=== PATIENT | female | born 1955 | race Caucasian/White ===

== ENCOUNTER 2019-07-20 13:51 | Inpatient (IN) ==
[2019-07-20] MEDS ORDERED: IPRATROPIUM/ALBUTEROL 3 ML AMPUL.NEB NEB PRN (16:50)
[2019-07-20] MEDS ORDERED: POTASSIUM CHLORIDE 20 MEQ TABLET PO PRN ×2 (16:50)
[2019-07-20] MEDS ORDERED: DEXTROSE 50% 50 ML VIAL IV PRN (16:50)
[2019-07-20] MEDS ORDERED: POTASSIUM CHLORIDE 40 MEQ in DEXTROSE 5% IN WATER 500 ML IV PRN (16:50)
[2019-07-20] MEDS ORDERED: SENNOSIDES 1 TABLET PO PRN (16:50)
[2019-07-20] MEDS ORDERED: MAGNESIUM SULFATE 2 GM/50 ML BAG IV PRN (16:50)
[2019-07-20] MEDS ORDERED: LACTULOSE 20 GM/30 ML ORAL.SOL PO PRN (16:50)
[2019-07-20] MEDS ORDERED: DEXTROSE 31 GM ORAL.SUSP PO PRN (16:50)
[2019-07-20] MEDS ORDERED: ACETAMINOPHEN 325 MG TABLET PO PRN (16:50)
[2019-07-20] MEDS ORDERED: ONDANSETRON 4 MG/2 ML VIAL IV PRN (16:50)
[2019-07-20] MEDS ORDERED: POLYETHYLENE GLYCOL 3350 17 GM PACKET PO PRN (16:50)
[2019-07-20] MEDS ORDERED: MIDODRINE 5 MG TABLET PO PRN (16:53)
--- NOTE | 2019-07-20 16:59 | Internal Med History&Physical ---
Medical - H&P: [facility] Patient information: Note initiated : 07/20/19 at 4:56 pm Service Date, if different from initiated Date: [] Patient: Perez Sandy 63 y/o F admitted on 07/20/19 for Fluid Overload . Chief Complaint: [] History of present illness: Ms. Sandy is a 63 year old F Patient presents the ED with shortness of breath. Patient states she developing shortness of breath last night. She has a chronic cough but the cough is worse. And productive of white clear sputum. Does have chronic shortness of breath but feels it is worse as well. She has headaches. In ED she received breathing treatments she said helped. She typically only wears oxygen at night 2 L however will wear oxygen during the day sometimes and averages a couple days per week. Denies fever and chills. She was hypoxic at 86% initially. She is dialysis patient as well. Review of Systems: Pertinent positives as above. Denies /fever/chills/nausea/vomiting/chest or abdominal pain/diarrhea. Otherwise see above. Medical - H&P: [facility] Medical history: Medical History (Last Updated 06/16/19 @ 12:44 by Conrado Keiht DO) Diabetes mellitus, type 2 (Chronic) Chronic renal failure, stage 5 (Chronic) COPD (chronic obstructive pulmonary disease) with emphysema (Chronic) Morbid obesity (Chronic) Cellulitis (Acute) Acute exacerbation of chronic obstructive airways disease (Resolved) COPD exacerbation (Resolved) Surgical history: Rotator cuff repair x2 Family: Mother lung cancer Father heart disease Social History Patient quit smoking 10 years ago Has 1 glass of alcohol a month Ambulates with a walker Lives with family Medical - H&P: Meds Home Medications Medication Instructions Recorded Confirmed Type Albuterol Sulfate 2.5 mg IH Q4HP PRN 06/08/19 06/16/19 History Albuterol Sulfate [Proair 90 mcg IH Q4HP PRN 06/08/19 07/20/19 History Digihaler] Aspirin [Adult Aspirin Regimen] 81 mg PO DAILY 06/08/19 06/16/19 History Beclomethasone Dipropionate [Qvar 2 puff INH BID 06/08/19 06/16/19 History 40] Calcium Acetate [Phoslo] 2 cap PO ONCE 06/08/19 06/16/19 History Calcium Acetate [Phoslo] 667 mg PO ONCE 06/08/19 06/16/19 History Calcium Carbonate [Tums] 500 mg CHEWED TID 06/08/19 06/16/19 History Cyanocobalamin (Vitamin B-12) 1,000 mcg PO DAILY 06/08/19 06/16/19 History [Vitamin B-12] Diltiazem HCl [Cartia Xt] 240 mg PO DAILY 06/08/19 07/20/19 History Fluticasone Furoate [Arnuity 1 puff IH DAILY 06/08/19 06/16/19 History Ellipta] Folic Acid/Vit B Complex and C 0.8 mg PO DAILY 06/08/19 06/16/19 History [Dialyvite 800 Tablet] Gabapentin [Neurontin] 150 mg PO HSP PRN 06/08/19 06/16/19 History Insulin Glargine, Human [Lantus] 30 unit SQ BID 06/08/19 06/16/19 History Levalbuterol Tartrate [Xopenex Hfa] 1 puff IH Q4HP PRN 06/08/19 07/20/19 History Midodrine [Midodrine HCl] 5 mg PO Q4HP PRN 06/08/19 07/20/19 History Mometasone/Formoterol [Dulera 200 2 puff IH BID 06/08/19 06/16/19 History Mcg/5 Mcg Inhaler] Naproxen Sodium [All Day Pain 220 mg PO PRN PRN 06/08/19 06/16/19 History Relief] Pravastatin [Pravachol] 80 mg PO HS 06/08/19 06/16/19 History Sulfamethoxazole/Trimethoprim 1 tab PO BID #14 tab 06/08/19 06/16/19 Rx [Bactrim Ds] Tiotropium Saunemin [Spiriva] 2 puff INH BID 06/08/19 07/20/19 History glipiZIDE [Glipizide ER] 10 mg PO DAILY 06/08/19 06/16/19 History predniSONE [Prednisone] 20 mg PO DAILY #23 tab 06/08/19 06/16/19 Rx traZODone HCL [Trazodone HCl] 50 mg PO HS 06/08/19 07/20/19 History Levofloxacin [Levaquin] 250 mg PO DAILY #7 tab 06/16/19 Rx predniSONE [Prednisone] 20 mg PO DAILY #20 tab 06/16/19 Rx Cephalexin [Keflex] 500 mg PO QID #30 cap 07/02/19 Rx Sulfamethoxazole/Trimethoprim 1 tab PO BID #14 tab 07/02/19 Rx [Bactrim Ds] Cephalexin [Keflex] 500 mg PO QID 07/20/19 07/20/19 History Fluticasone/Salmeterol [Advair Hfa 2 puff INH BID 07/20/19 07/20/19 History 115-21 Mcg Inhaler] Allergies Allergy/AdvReac Type Severity Reaction Status Date / Time Penicillins Allergy Intermediate Rash Verified 07/20/19 15:14 adhesive tape AdvReac Mild Rash Verified 07/20/19 15:14 Surgical metals AdvReac Severe Other Uncoded 07/20/19 15:14 manzanares butter AdvReac Intermediate Rash Uncoded 07/20/19 15:14 Medical - H&P: Exam - Constitutional Vitals: Temp Pulse Resp BP Pulse Ox 98.9 F 102 H 18 167/99 94 07/20/19 16:11 07/20/19 15:01 07/20/19 16:11 07/20/19 16:11 07/20/19 16:11 Exam: General: Alert, Awake, No acute Distress, obese Eyes/N/T: EOMI, PERRL, Head/Neck: neck supple, normocephalic atraumatic CV: RRR, No murmurs, normal s1/s2 Pulm: b/l exp wheezing, diminished at bases Abd: soft, nontender, +BS x4 Ext: no clubbing/cyanosis, chronic b/l LE edema mild Neuro: Alert, no focal deficits, moves all extremities, CN 2-12 grossly intact, symmetrical strength b/l upper/lower, sensations intact b/l upper/lower Skin: warm/dry Medical - H&P: A/P - Narrative A/P Narrative: A: *Acute hypoxic respiratory failure: 2/2 AECOPD and likely volume overload *AECOPD (2L@night at home and sometimes during day): *Volume overload: *ESRD: Follows with Dr. Molina *Leukocytosis: ?PNA vs reactive *Hyperkalemia/hyponatremia: *DM with neuropathy:: *Anemia, chronic *Obese: * P: -O2 supp -steroids (wean), nebs/RT -IS/acapella -Levaquin, pending SC, check PCT -Check ABG -NEphro for HD -Electrolyte per nephrology -Home basal insulin and SSI - -PT/OT -ppx: Heparin full code Medical - H&P: Qual - VTE Deep Vein Thrombosis/Pulmonary Embolism Present on Admission: No
[2019-07-20] MEDS ORDERED: LEVOFLOXACIN 500 MG/100 ML BAG IV SCH (17:00)
[2019-07-20] MEDS ORDERED: LEVOFLOXACIN 750 MG/150 ML BAG IV ONE (17:15)
[2019-07-20] MEDS: methylPREDNISolone SOD SUCC 40 MG/ML VIAL IV SCH (17:57)
[2019-07-20] MEDS: INSULIN LISPRO 1 UNIT/0.01 ML UNIT SQ SCH ×2 (17:57→22:12)
[2019-07-20] MEDS: IPRATROPIUM/ALBUTEROL 3 ML AMPUL.NEB NEB SCH (20:15)
[2019-07-20] MEDS ORDERED: traZODone HCL 50 MG TABLET PO SCH (21:00)
[2019-07-20] MEDS: HEPARIN 5,000 UNIT/ML VIAL SQ SCH (22:12)
[2019-07-20] MEDS: 0.9 % SODIUM CHLORIDE 10 ML SYRINGE IV SCH (22:13)
[2019-07-21] MEDS: DOCUSATE SODIUM 100 MG CAPSULE PO SCH ×3 (02:36→21:40)
[2019-07-21] MEDS: IPRATROPIUM/ALBUTEROL 3 ML AMPUL.NEB NEB SCH ×4 (02:36→22:22)
[2019-07-21] MEDS: methylPREDNISolone SOD SUCC 40 MG/ML VIAL IV SCH ×2 (02:53→06:40)
[2019-07-21] MEDS: 0.9 % SODIUM CHLORIDE 10 ML SYRINGE IV SCH ×3 (04:38→21:40)
[2019-07-21] MEDS ORDERED: GABAPENTIN 100 MG CAPSULE PO PRN (07:22)
--- NOTE | 2019-07-21 07:28 | Internal Med Progress Note ---
Medical - PN: Subj Patient information: Note initiated : 07/21/19 at 7:24 am Service Date, if different from initiated Date: [] Patient: Perez Sandy 63 y/o F admitted on 07/20/19 for Fluid Overload . Chief Complaint: [] Interval history: Ms. Sandy is a 63 year old F Patient presents the ED with shortness of breath. Patient states she developing shortness of breath last night. She has a chronic cough but the cough is worse. And productive of white clear sputum. Does have chronic shortness of breath but feels it is worse as well. She has headaches. In ED she received breathing treatments she said helped. She typically only wears oxygen at night 2 L however will wear oxygen during the day sometimes and averages a couple days per week. Denies fever and chills. She was hypoxic at 86% initially. She is dialysis patient as well. 3/3 Better today. Able to cough out some sputum today clear yellow. Shortness of breath is still mildly present but much better. 5 L removed from the night hemodialysis last night. Getting dialysis today. Does not feel wheezy like she did yesterday. Review of Systems: denies headache/fever/chills/nausea/vomiting/chest or abdominal pain/diarrhea. Otherwise see above. - Constitutional Vitals: Vital Signs Temp Pulse Resp BP Pulse Ox 97.9 F 99 H 18 155/78 93 07/21/19 04:00 07/21/19 07:17 07/21/19 07:17 07/21/19 04:00 07/21/19 07:09 Period Temp Pulse Resp BP Sys/Joyce Pulse Ox Last 24 Hr 97.4 F-98.9 F 88-108 18-24 121-170/68-138 84-99 Intake and Output 07/20/19 07/21/19 07/21/19 21:59 05:59 13:59 Intake Total 100 Output Total 5002 Balance -4902 Weight 108.862 kg Intake & Output: Intake & Output 07/20/19 07/21/19 07/21/19 21:59 05:59 13:59 Intake Total 100 Output Total 5002 Balance -4902 Weight 108.862 kg Intake: IV 100 Output: # of times incontinent of urine 2 Hemodialysis UF 5000 Other: Meal Jello Percent of Meal Consumed 100% Exam: General: Alert, Awake, No acute Distress, obese Eyes/N/T: EOMI, , Head/Neck: neck supple, CV: RRR, No murmurs, Pulm: no wheezing today, diminished at bases Abd: soft, nontender, +BS x4 Ext: no clubbing/cyanosis, chronic b/l LE edema mild Neuro: Alert, no focal deficits, moves all extremities, Skin: warm/dry Medical - PN: Obj Da - Labs CBC & Chem 7: 07/21/19 06:55 07/21/19 06:55 Meds: Medications Acetaminophen (Tylenol) 650 mg PO Q6HP PRN PRN Reason: PAIN/FEVER > 101 Albuterol/Ipratropium (Duoneb) 3 ml NEB Q6HRT [facility] Last Admin: 07/21/19 07:08 Dose: 3 ml Documented by: Albuterol/Ipratropium (Duoneb) 3 ml NEB Q4HP PRN PRN Reason: Shortness Of Breath Dextrose (Dextrose 50%) 0 ml IV UD PRN PRN Reason: Hypoglycemia Diagnostic Test (Pha) (Accu-Chek) 1 each [facility] Last Admin: 07/21/19 06:40 Dose: 1 each Documented by: Diltiazem HCl (Cardizem Cd) 240 mg PO DAILY [facility] Docusate Sodium (Colace) 100 mg PO BID [facility] Last Admin: 07/21/19 02:36 Dose: Not Given Documented by: Glucose (Insta-Glucose) 15 gm PO PRN PRN PRN Reason: Hypoglycemia Heparin Sodium (Porcine) (Heparin) 5,000 unit SQ Q12 [facility] Last Admin: 07/20/19 22:12 Dose: 5,000 unit Documented by: Potassium Chloride 40 meq/ (Dextrose) 520 mls @ 130 mls/hr IV UD PRN PRN Reason: Potassium < 3 Magnesium Sulfate (Magnesium Sulfate) 2 gm in 50 mls @ 50 mls/hr IV UD PRN PRN Reason: Magnesium </= 1.6 Levofloxacin (Levaquin) 500 mg in 100 mls @ 100 mls/hr IV Q48H [facility] Insulin Human Lispro (Humalog) 0 unit SQ [facility]; Protocol Last Admin: 07/20/19 22:12 Dose: 8 units Documented by: Lactulose (Cephulac) 20 gm PO DAILYP PRN PRN Reason: Constipation Methylprednisolone Sodium Succinate (Solu-Medrol) 40 mg IV Q8 [facility] Last Admin: 07/21/19 06:40 Dose: 40 mg Documented by: Midodrine (Midodrine Hcl) 5 mg PO Q4HP PRN PRN Reason: Blood Pressure Ondansetron HCl (Zofran) 4 mg IV Q4HP PRN PRN Reason: Nausea And Vomiting Polyethylene Glycol (Miralax) 17 gm PO DAILYP PRN PRN Reason: Constipation Potassium Chloride (Kdur) 40 meq PO UD PRN PRN Reason: Potssium is 3-3.5 Potassium Chloride (Kdur) 40 meq PO UD PRN PRN Reason: Potassium < 3 Senna (Senokot) 2 tab PO DAILYP PRN PRN Reason: Constipation Sodium Chloride (Saline Flush) 10 ml IV Q8 [facility] Last Admin: 07/21/19 04:38 Dose: 10 ml Documented by: Trazodone HCl (Desyrel) 50 mg PO HS [facility] Last Admin: 07/21/19 02:37 Dose: Not Given Documented by: Medical - PN: A/P - Time Spent With Patient Total time spent is greater than 50% in coordination of care (as documented) at patient's floor/unit and/or counseling patient: - Narrative A/P Narrative: A: *Acute hypoxic respiratory failure: 2/2 AECOPD and volume overload -from 2L initially to 0.5L today *suspect underlying PNA with leukocytosis/PCT elevation on admit: -leukocytosis improving *AECOPD (2L@night at home and sometimes during day): *Volume overload: *ESRD: Follows with Dr. Molina *Hyperkalemia/hyponatremia: *DM with neuropathy:: *Anemia, chronic *Obese: * P: -O2 supp -steroids (wean), nebs/RT -IS/acapella -Levaquin, pending SC, -NEphro for HD -Electrolyte per nephrology -Home basal insulin and SSI -PT/OT -ppx: Heparin Medical - PN: Qual - VTE Deep Vein Thrombosis/Pulmonary Embolism Present on Admission: No
[2019-07-21] MEDS ORDERED: glipiZIDE 5 MG TAB.XL.24H PO SCH (07:30)
[2019-07-21 07:46] LABS: Basophils # (Auto) 0.06 K/mcL (0.00-0.30); Basophils % (Auto) 0.5 % (0.0-2.0); Eosinophils # (Auto) 0 K/mcL (0.00-0.70); Eosinophils % (Auto) 0 % (0.0-7.0); Granulocytes % (Auto) 86.7 % (38.0-78.0); Hematocrit 30.5 % (34.1-44.9); Hemoglobin 9.6 g/dL (11.2-15.7); Lymphocytes # (Auto) 1.19 K/mcL (1.50-4.80); Lymphocytes % (Auto) 10.6 % (15.5-49.0); Mean Cell Volume 88.4 fL (80.0-100.0); Mean Corpuscular HGB Conc 31.5 g/dL (31.0-36.0); Mean Platelet Volume 10.4 fL (7.4-10.4); Monocytes # (Auto) 0.25 K/mcL (0.10-0.90); Monocytes % (Auto) 2.2 % (1.0-12.0); Platelet Count 261 K/mcL (140-440); RBC 3.45 M/mcL (3.59-5.38); Red Cell Distribution Width 16.1 % (11.5-14.5); WBC 11.2 K/mcL (4.50-11.00)
[2019-07-21 07:57] LABS: ALT/SGPT 20 U/l (0-40); AST/SGOT 18 U/l (0-37); Albumin 3.5 gm/dL (3.2-5.2); Albumin/Globulin Ratio 1.1 (1.0-2.3); Alkaline Phosphatase 156 U/L (39-117); Bilirubin,Direct < 0.2 mg/dL (0.0-0.3); Bilirubin,Total 0.3 mg/dL (0.0-1.0); Calcium 8.3 mg/dl (8.6-10.4); Carbon Dioxide 25 mmol/L (22-30); Globulin 3.2 gm/dL (2.2-3.7); Glucose 239 mg/dL (70-105); Lactate Dehydrogenase 293 U/L (94-250); Phosphorous 4.8 mg/dL (2.7-4.5); Triglycerides 91 mg/dl (<150); Uric Acid 3.4 mg/dL (2.5-8.0)
--- NOTE | 2019-07-21 08:04 | XRay Report ---
HISTORY: Fluid overload, pneumonia versus pulmonary edema FINDINGS: There is a mild generalized haziness in the lung parenchyma bilaterally, most apparent around the lilian. The heart is mildly enlarged but magnified by portable technique. No pleural effusion is present. Discoid atelectasis is present adjacent to the cardiac apex. Comparison with the prior exam from 06/16/19 shows the alveolar opacities are new and the heart has increased in size. The discoid atelectasis is also new. IMPRESSION: Congestive heart failure with mild pulmonary edema Interpreted and Authenticated by: Steven Dey 07/21/19
[2019-07-21 08:06] LABS: Blood Urea Nitrogen 22 mg/dl (8-23); Chloride 91 mmol/L (96-108); Glomerular Filtration Rate 12
[2019-07-21] MEDS: INSULIN LISPRO 1 UNIT/0.01 ML UNIT SQ SCH ×4 (08:14→21:38)
[2019-07-21] MEDS: HEPARIN 5,000 UNIT/ML VIAL SQ SCH ×2 (08:14→21:37)
[2019-07-21] MEDS ORDERED: SALMETEROL INH SCH (09:00)
[2019-07-21] MEDS ORDERED: ASPIRIN 81 MG TAB.CHEW PO SCH (09:00)
[2019-07-21] MEDS ORDERED: FLUTICASONE INH SCH (09:00)
[2019-07-21] MEDS ORDERED: DILTIAZEM 240 MG CAP.XL.24H PO SCH (09:00)
[2019-07-21] MEDS ORDERED: INSULIN GLARGINE, HUMAN 1 UNIT/0.01 ML SQ SCH (09:00)
--- NOTE | 2019-07-21 09:39 | Nephrology Progress Note ---
Subjective Patient information: Note initiated : 07/21/19 at 9:36 am Service Date, if different from initiated Date: [] Patient: Perez Sandy 63 y/o F admitted on 07/20/19 for Fluid Overload . Chief Complaint: [] She feels better. The swelling in her legs are better. Breathing is better as well. Objective - Vital Signs Vital signs: Vital Signs Temp Pulse Resp BP Pulse Ox 07/21/19 08:19 105 H 93 07/21/19 08:00 97.5 F 22 151/87 93 07/21/19 07:17 99 H 18 07/21/19 07:09 93 07/21/19 07:00 150/78 07/21/19 06:01 102 H 151/75 98 07/21/19 05:00 159/84 07/21/19 04:00 97.9 F 20 155/78 92 07/21/19 03:00 146/72 07/21/19 02:45 135/72 07/21/19 02:30 97.4 F 96 H 140/76 96 07/21/19 02:16 93 H 123/76 99 07/21/19 02:15 91 H 123/76 07/21/19 02:01 94 H 133/74 96 07/21/19 02:00 91 H 133/74 07/21/19 01:45 96 H 145/71 95 07/21/19 01:31 94 H 134/72 96 07/21/19 01:30 89 134/72 07/21/19 01:18 96 H 143/75 96 07/21/19 01:16 96 H 170/138 98 07/21/19 01:15 96 H 143/75 07/21/19 01:01 91 H 128/73 97 07/21/19 01:00 91 H 128/73 07/21/19 00:46 93 H 143/70 98 07/21/19 00:45 91 H 143/70 07/21/19 00:30 95 H 162/83 95 07/21/19 00:15 94 H 150/79 96 07/21/19 00:01 94 H 158/81 97 07/21/19 00:00 103 H 158/81 07/20/19 23:46 96 H 166/78 97 07/20/19 23:45 100 H 166/78 07/20/19 23:32 97 H 160/82 97 07/20/19 23:31 97 H 162/80 96 07/20/19 23:30 102 H 160/82 07/20/19 23:16 97 H 169/89 96 07/20/19 23:15 101 H 169/89 07/20/19 23:01 97 H 152/77 97 07/20/19 23:00 97 H 152/77 07/20/19 22:46 102 H 157/79 96 07/20/19 22:45 97.9 F 93 H 157/79 07/20/19 22:30 102 H 143/85 89 L 07/20/19 22:26 98 H 152/84 94 07/20/19 22:01 100 H 121/97 94 07/20/19 21:01 102 H 169/99 84 L 07/20/19 20:07 98.3 F 108 H 24 H 164/86 93 07/20/19 16:11 98.9 F 18 167/99 94 07/20/19 15:01 102 H 157/77 95 07/20/19 14:51 102 H 141/68 95 07/20/19 14:29 22 97 Intake and Output 07/20/19 07/21/19 07/21/19 21:59 05:59 13:59 Intake Total 100 Output Total 5002 Balance -4902 Intake: IV 100 Output: # of times incontinent of urine 2 Hemodialysis UF 5000 Other: Meal Jello Percent of Meal Consumed 100% Weight 240 lb Intake & Output: Intake & Output 07/20/19 07/21/19 07/21/19 21:59 05:59 13:59 Intake Total 100 Output Total 5002 Balance -4902 Weight 240 lb Intake: IV 100 Output: # of times incontinent of urine 2 Hemodialysis UF 5000 Other: Meal Jello Percent of Meal Consumed 100% - General Appearance General appearance: well-developed, well-nourished EENT: ATNC Neck: JVD Respiratory: wheezing, rales Cardiology: no murmurs Gastrointestinal: normoactive bowel sounds Integumentary: no rash Neurologic: no focal deficit Musculoskeletal: no deformities - Lab 07/21/19 06:55 07/21/19 06:55 Most recent lab results Calcium 8.3 mg/dl (8.6-10.4) L 07/21/19 06:55 Phosphorus 4.8 mg/dL (2.7-4.5) H 07/21/19 06:55 Magnesium 2.0 mg/dL (1.6-2.5) 07/21/19 06:55 Assessment and Plan (1) Chronic renal failure, stage 5 Status: Chronic Comment: ESRD. She had dialysis yesterday and had fluid removed. Her edema is better but still not completely resolved. She still has ce llulitis of the lower extremities. Will do ultrafiltration and remove additional amount of fluids today.
--- NOTE | 2019-07-21 10:47 | Consultation ---
DATE OF CONSULTATION: 07/20/2019 REQUESTING PHYSICIAN: Jameel Langston DO REASON FOR HOSPITALIZATION: End-stage renal disease. HISTORY OF PRESENT ILLNESS: The patient is a 63-year-old female with past medical history significant for severe COPD, end-stage renal disease on hemodialysis. She is somewhat noncompliant with the fluids as well. She presented to the ED with shortness of breath. She had a chronic cough and it has been getting worse. It has been productive of white sputum. In the emergency room, she received several bronchodilator treatments. That did help her breathe a little bit better but chest x-ray showed persistent fluid and she was hypoxic at 86%, initially. For that reason, she was hospitalized. PAST MEDICAL HISTORY: 1. Type 2 diabetes. 2. Chronic end-stage kidney disease, on hemodialysis Mondays, Wednesdays, Fridays. 3. Chronic obstructive pulmonary disease/emphysema. 4. Morbid obesity. 5. Cellulitis of the lower extremities. PAST SURGICAL HISTORY: History of rotator cuff repair and x2. FAMILY HISTORY: Mother had lung cancer. Father had heart disease. SOCIAL HISTORY: The patient quit smoking 10 years ago. No history of alcohol or drug use. MEDICATIONS ON ADMISSION: 1. Albuterol 2.5 mg inhalers p.r.n. 2. Aspirin 81 mg daily. 3. Qvar 40 mg, 2 puffs b.i.d. 4. PhosLo 2 capsule once daily and 3 with each meal. 5. B12 1000 mcg daily. 6. Potassium 240 mg daily. 7. Fluticasone nasal spray. 8. Folic acid with B complex 1 tablet once daily. 9. Gabapentin 150 mg at night. 10. Midodrine 5 mg p.r.n. during dialysis. 11. Pravachol 80 mg at night. 12. Glipizide 10 mg daily. ALLERGIES: PENICILLIN AND ADHESIVE TAPE. REVIEW OF SYSTEMS: PHYSICAL EXAMINATION: GENERAL: Alert, oriented x3. She is in mild respiratory distress. VITAL SIGNS: Blood pressures have been 150 to 160 systolic with a diastolic in the 80s to 90s. Pulse rates have been in the 100s, temperature 98.9 with a pulse oximetry of 94%. HEENT: Normocephalic/atraumatic. Pupils are reactive to light. NECK: Supple. She does have a jugular venous distention. CARDIAC: S1, S2 heard. No S3, S4. She has a 2/6 systolic murmur. LUNGS: Decreased air entry bilaterally with rales and rhonchi heard in both bases. ABDOMEN: Soft, nontender. No organomegaly. Positive bowel sounds. EXTREMITIES: Showed 3+ edema bilaterally with erythema extending all the way to the abdomen. NEUROLOGICAL: Grossly intact. LABORATORY DATA: White count 11.2 with hemoglobin of 9.6 and platelet count of 261. Sodium 133, potassium 5.0, chloride 91, CO2 25, BUN 22, creatinine 3.7, glucose 239, calcium 8.3 with a phosphorus of 4.8. ASSESSMENT AND PLAN: 1. End-stage renal disease on hemodialysis. She is volume overloaded. She is also due for dialysis. We will dialyze to remove about 4 to 5 kilos of fluid as tolerated. 2. Chronic obstructive pulmonary disease exacerbation/fluid. Chest x-ray did show fluid/vascular congestion and edema in the lung tyson. We will take additional fluid off and maybe dialyze again in the morning. 3. Diabetes. 4. Hyperphosphatemia. Phosphorus is adequate. SIXTO:jacques Job ID: [id number] Doc ID: [id number] Jim Langston DO
[2019-07-21 11:07] LABS: Anisocytosis 1+ (NONE SEEN); Band Neutrophils % 9 % (0-10); Basophils % (Manual) 1 % (0-2); Hypochromasia 1+ (NONE SEEN); Lymphocytes % 10 % (15-49); Metamyelocytes % 5 % (0-0); Monocytes % (Manual) 4 % (1-12); Myelocytes % 1 % (0-0); Platelet Estimate NORMAL (NORMAL); Polychromasia 1+ (NONE SEEN); RBC Morphology ABNORM (NORMAL); Segmented Neutrophils % 70 % (38-78)
--- NOTE | 2019-07-21 11:33 | Discharge Summary ---
Medical - DS: Prov Patient information: Note initiated : 07/21/19 at 11:31 am Service Date, if different from initiated Date: [] Patient: Perez Sandy 63 y/o F admitted on 07/20/19 for Fluid Overload . Chief Complaint: [] Date of admission: 07/20/19 14:29 Discharge date: 07/23/19 Primary care physician: LEANN Escamilla Consults: 07/20/19 16:52 Consult to Physician [CONS] Routine Comment: Consulting Provider: Jim Molina Reason For Exam: Physician to Consult Medical - DS: Meds - Discharge Medications Prescriptions: Levofloxacin [Levaquin] 500 mg PO Q48 #2 tab predniSONE [Prednisone] 40 mg PO QAC #1 tab Active and Home Medications: Home Medications Albuterol Sulfate [Proair Digihaler] 90 mcg IH Q4HP PRN 06/08/19 [History Confirmed 07/20/19 Last Taken Unknown] Aspirin [Adult Aspirin Regimen] 81 mg PO DAILY 06/08/19 [History Confirmed 07/21/19 Last Taken Unknown] Calcium Acetate [Phoslo] 2 cap PO ONCE 06/08/19 [History Confirmed 06/16/19 Last Taken Unknown] Calcium Acetate [Phoslo] 667 mg PO ONCE 06/08/19 [History Confirmed 06/16/19 Last Taken Unknown] Calcium Carbonate [Tums] 500 mg CHEWED TID 06/08/19 [History Confirmed 06/16/19 Last Taken Unknown] Cyanocobalamin (Vitamin B-12) [Vitamin B-12] 500 mcg PO DAILY 06/08/19 [History Confirmed 07/21/19 Last Taken Unknown] Diltiazem HCl [Cartia Xt] 240 mg PO DAILY 06/08/19 [History Confirmed 07/20/19 Last Taken Unknown] Fluticasone Furoate [Arnuity Ellipta] 1 puff IH DAILY 06/08/19 [History Confirmed 07/21/19 Last Taken Unknown] Folic Acid/Vit B Complex and C [Dialyvite 800 Tablet] 0.8 mg PO DAILY 06/08/19 [History Confirmed 06/16/19 Last Taken Unknown] Gabapentin [Neurontin] 100 mg PO HSP PRN 06/08/19 [History Confirmed 07/21/19 Last Taken Unknown] Levalbuterol Tartrate [Xopenex Hfa] 1 puff IH Q4HP PRN 06/08/19 [History Confirmed 07/20/19 Last Taken Unknown] Midodrine [Midodrine HCl] 5 mg PO Q4HP PRN 06/08/19 [History Confirmed 07/20/19 Last Taken Unknown] Pravastatin [Pravachol] 80 mg PO HS 06/08/19 [History Confirmed 07/21/19 Last Taken Unknown] Tiotropium [place] [Spiriva] 2 puff INH BID 06/08/19 [History Confirmed 07/20/19 Last Taken 07/18/19 21:00] glipiZIDE [Glipizide ER] 10 mg PO DAILY 06/08/19 [History Confirmed 07/21/19 Last Taken Unknown] traZODone HCL [Trazodone HCl] 50 mg PO HS 06/08/19 [History Confirmed 07/20/19 Last Taken 07/19/19 20:00] Sulfamethoxazole/Trimethoprim [Bactrim Ds] 1 tab PO BID #14 tab 07/02/19 [Rx Confirmed 07/21/19 Last Taken Unknown] Cephalexin [Keflex] 500 mg PO QID 07/20/19 [History Confirmed 07/20/19 Last Taken Unknown] Fluticasone/Salmeterol [Advair Hfa 115-21 Mcg Inhaler] 2 puff INH BID 07/20/19 [History Confirmed 07/20/19 Last Taken Unknown] Levemir Flextouch 30 units SQ BID 07/21/19 [History Confirmed 07/21/19 Last Taken Unknown] Vit B Comp No.3/Folic/C/Biotin [Angy-Jace Rx Tablet] 1 tab PO QDAY 07/21/19 [History Confirmed 07/21/19 Last Taken Unknown] Medical - DS: Hosp Hospital Course: Ms. Sandy is a 63 year old F Patient presents the ED with shortness of breath. Patient states she developing shortness of breath last night. She has a chronic cough but the cough is worse. And productive of white clear sputum. Does have chronic shortness of breath but feels it is worse as well. She has headaches. In ED she received breathing treatments she said helped. She typically only wears oxygen at night 2 L however will wear oxygen during the day sometimes and averages a couple days per week. Denies fever and chills. She was hypoxic at 86% initially. She is dialysis patient as well. 3/ Better today. Able to cough out some sputum today clear yellow. Shortness of breath is still mildly present but much better. 5 L removed from the night hemodialysis last night. Getting dialysis today. Does not feel wheezy like she did yesterday. 07/21 To get hemodialysis today. Patient does feel better today. Cough improving. Shortness of breath improving. Weekend Case management working on SNF placement 07/22 Patient doing well. Feeling better. On room air. Patient doing well. She does have a noted leukocytosis but she is afebrile and feels well. Nontoxic appearing. No Bandemia. Looking at lab trends seem she has had a chronic leukocytosis. Will schedule follow-up with hematology. Glucocorticoids also likely contributor. A: *Acute hypoxic respiratory failure: 2/ AECOPD and volume overload *leukocytosis and elevated pct gave concern for underlying PNA but she appears to have chronic leukocytosis and PCT often falsely elevated in ESRD and she has had chronic elevations in it. -she has been empirically treated for it *AECOPD (2L@night at home and sometimes during day): *Volume overload: *ESRD: Follows with Dr. Molina *Hyperkalemia/hyponatremia: *DM with neuropathy:: *Anemia, chronic *Obese: Discharge diagnosis: COPD pneumonia volume overload end-stage renal disease Secondary discharge diagnosis: Hyperkalemia hyponatremia diabetes neuropathy anemia obesity Leukocytosis. - Time Spent with Patient Total time spent providing and/or coordinating discharge services: Greater than 30 minutes Medical - DS: Exam - Constitutional Vitals: Vital Signs Temp Pulse Resp BP Pulse Ox 07/21/19 08:19 105 H 93 07/21/19 08:00 97.5 F 22 151/87 93 07/21/19 07:17 99 H 18 07/21/19 07:09 93 07/21/19 07:00 150/78 07/21/19 06:01 102 H 151/75 98 07/21/19 05:00 159/84 07/21/19 04:00 97.9 F 20 155/78 92 07/21/19 03:00 146/72 07/21/19 02:45 135/72 07/21/19 02:30 97.4 F 96 H 140/76 96 07/21/19 02:16 93 H 123/76 99 07/21/19 02:15 91 H 123/76 07/21/19 02:01 94 H 133/74 96 07/21/19 02:00 91 H 133/74 07/21/19 01:45 96 H 145/71 95 07/21/19 01:31 94 H 134/72 96 07/21/19 01:30 89 134/72 07/21/19 01:18 96 H 143/75 96 07/21/19 01:16 96 H 170/138 98 07/21/19 01:15 96 H 143/75 07/21/19 01:01 91 H 128/73 97 07/21/19 01:00 91 H 128/73 07/21/19 00:46 93 H 143/70 98 07/21/19 00:45 91 H 143/70 07/21/19 00:30 95 H 162/83 95 07/21/19 00:15 94 H 150/79 96 07/21/19 00:01 94 H 158/81 97 07/21/19 00:00 103 H 158/81 07/20/19 23:46 96 H 166/78 97 07/20/19 23:45 100 H 166/78 07/20/19 23:32 97 H 160/82 97 07/20/19 23:31 97 H 162/80 96 07/20/19 23:30 102 H 160/82 07/20/19 23:16 97 H 169/89 96 07/20/19 23:15 101 H 169/89 07/20/19 23:01 97 H 152/77 97 07/20/19 23:00 97 H 152/77 07/20/19 22:46 102 H 157/79 96 07/20/19 22:45 97.9 F 93 H 157/79 07/20/19 22:30 102 H 143/85 89 L 07/20/19 22:26 98 H 152/84 94 07/20/19 22:01 100 H 121/97 94 07/20/19 21:01 102 H 169/99 84 L 07/20/19 20:07 98.3 F 108 H 24 H 164/86 93 07/20/19 16:11 98.9 F 18 167/99 94 07/20/19 15:01 102 H 157/77 95 07/20/19 14:51 102 H 141/68 95 07/20/19 14:29 22 97 Intake and Output 07/20/19 07/21/19 07/21/19 21:59 05:59 13:59 Intake Total 100 240 Output Total 5002 Balance -4902 240 Intake: IV 100 Oral 240 Output: # of times incontinent of urine 2 Hemodialysis UF 5000 Other: Meal Jello Breakfast Percent of Meal Consumed 100% 100% Weight 108.862 kg Medical - DS: Data Labs on day of discharge: Labs from last 24 hours 07/21/19 07/21/19 07/21/19 06:55 06:55 06:55 WBC RBC Hgb Hct MCV MCH MCHC RDW Plt Count MPV Gran % Lymph % (Auto) [place] % (Auto) Eos % (Auto) Baso % (Auto) Gran # Lymph # (Auto) [place] # (Auto) Eos # (Auto) Baso # (Auto) Total Counted 100 Seg Neutrophils % 70 Band Neutrophils % 9 Lymphocytes % 10 L Monocytes % (Manual) 4 Basophils % (Manual) 1 Metamyelocytes % 5 H Myelocytes % 1 H Differential Comment Platelet Estimate Normal RBC Morphology Abnorm A Polychromasia 1+ A Hypochromasia 1+ A Anisocytosis 1+ A Sodium 133 Potassium 5.0 Chloride 91 L Carbon Dioxide 25 Anion Gap 17.0 H BUN 22 Creatinine 3.7 H GFR Calculation 12 Glucose 239 H Uric Acid 3.4 Calcium 8.3 L Phosphorus 4.8 H Magnesium 2.0 Total Bilirubin 0.3 Direct Bilirubin < 0.2 GGT 58 H AST 18 ALT 20 Alkaline Phosphatase 156 H Lactate Dehydrogenase 293 H Total Protein 6.7 Albumin 3.5 Globulin 3.2 Albumin/Globulin Ratio 1.1 Triglycerides 91 Procalcitonin 0.76 07/21/19 07/20/19 06:55 17:44 WBC 11.2 H RBC 3.45 L Hgb 9.6 L Hct 30.5 L MCV 88.4 MCH 27.8 MCHC 31.5 RDW 16.1 H Plt Count 261 MPV 10.4 Gran % 86.7 H Lymph % (Auto) 10.6 L [place] % (Auto) 2.2 Eos % (Auto) 0 Baso % (Auto) 0.5 Gran # 9.74 H Lymph # (Auto) 1.19 L [place] # (Auto) 0.25 Eos # (Auto) 0 Baso # (Auto) 0.06 Total Counted Seg Neutrophils % Band Neutrophils % Lymphocytes % Monocytes % (Manual) Basophils % (Manual) Metamyelocytes % Myelocytes % Differential Comment Platelet Estimate RBC Morphology Polychromasia Hypochromasia Anisocytosis Sodium Potassium Chloride Carbon Dioxide Anion Gap BUN Creatinine GFR Calculation Glucose Uric Acid Calcium Phosphorus Magnesium Total Bilirubin Direct Bilirubin GGT AST ALT Alkaline Phosphatase Lactate Dehydrogenase Total Protein Albumin Globulin Albumin/Globulin Ratio Triglycerides Procalcitonin 0.71 Medical - DS: A/P - Patient/Caregiver Discharge Instructions Activity: increase activity as tolerated Diet: Renal/Consistent Carbs Additional Instructions: Follow-up with PCP in 3 to 7 days Furl to see aviculturist in 5 to 14 days for chronic leukocytosis Prescriptions: Levofloxacin [Levaquin] 500 mg PO Q48 #2 tab predniSONE [Prednisone] 40 mg PO QAMCC #1 tab - Follow up Plan Follow up with: Jim Molina MD [Physician] - Disposition: Xfer SNF Prognosis: Fair Rehab Potential: Fair I certify that the patient requires SNF services: Yes Overall status at discharge: patient is progressing back to baseline Medical - DS: Qual - VTE Deep Vein Thrombosis/Pulmonary Embolism Present on Admission: No
[2019-07-21] MEDS ORDERED: ACETAMINOPHEN 325 MG TABLET PO PRN (17:23)
[2019-07-21] MEDS ORDERED: DEXTROSE 50% 50 ML VIAL IV PRN (17:23)
[2019-07-21] MEDS ORDERED: ONDANSETRON 4 MG/2 ML VIAL IV PRN (17:23)
[2019-07-21] MEDS ORDERED: LACTULOSE 20 GM/30 ML ORAL.SOL PO PRN (17:23)
[2019-07-21] MEDS ORDERED: MAGNESIUM SULFATE 2 GM/50 ML BAG IV PRN (17:23)
[2019-07-21] MEDS ORDERED: POLYETHYLENE GLYCOL 3350 17 GM PACKET PO PRN (17:23)
[2019-07-21] MEDS ORDERED: SENNOSIDES 1 TABLET PO PRN (17:23)
[2019-07-21] MEDS ORDERED: POTASSIUM CHLORIDE 40 MEQ in DEXTROSE 5% IN WATER 500 ML IV PRN (17:23)
[2019-07-21] MEDS ORDERED: MIDODRINE 5 MG TABLET PO PRN (17:23)
[2019-07-21] MEDS ORDERED: POTASSIUM CHLORIDE 20 MEQ TABLET PO PRN ×2 (17:23)
[2019-07-21] MEDS ORDERED: DEXTROSE 31 GM ORAL.SUSP PO PRN (17:23)
[2019-07-21] MEDS ORDERED: IPRATROPIUM/ALBUTEROL 3 ML AMPUL.NEB NEB PRN (17:23)
[2019-07-21] MEDS ORDERED: SIMVASTATIN 10 MG TABLET PO SCH (21:00)
[2019-07-21] MEDS ORDERED: methylPREDNISolone SOD SUCC 40 MG/ML VIAL IV SCH ×2 (21:00)
[2019-07-21] MEDS ORDERED: MELATONIN 3 MG TABLET PO SCH (21:00)
[2019-07-21] MEDS: traZODone HCL 50 MG TABLET PO SCH (21:37)
[2019-07-21] MEDS: MELATONIN 3 MG TABLET PO SCH (21:37)
[2019-07-21] MEDS: SIMVASTATIN 10 MG TABLET PO SCH (21:37)
[2019-07-21] MEDS: GABAPENTIN 100 MG CAPSULE PO PRN (21:37)
[2019-07-21] MEDS: INSULIN GLARGINE, HUMAN 1 UNIT/0.01 ML SQ SCH (21:38)
[2019-07-21] MEDS: SALMETEROL INH SCH (21:42)
[2019-07-21] MEDS: FLUTICASONE INH SCH (21:42)
[2019-07-22] MEDS: IPRATROPIUM/ALBUTEROL 3 ML AMPUL.NEB NEB SCH ×4 (02:07→21:43)
[2019-07-22] MEDS: 0.9 % SODIUM CHLORIDE 10 ML SYRINGE IV SCH ×3 (05:56→21:28)
[2019-07-22 06:58] LABS: Hematocrit 28.2 % (34.1-44.9); Mean Cell Volume 87.3 fL (80.0-100.0); Mean Corpuscular HGB Conc 31.9 g/dL (31.0-36.0); Mean Platelet Volume 10.5 fL (7.4-10.4); Platelet Count 316 K/mcL (140-440); RBC 3.23 M/mcL (3.59-5.38); WBC 14.9 K/mcL (4.50-11.00)
[2019-07-22] MEDS: INSULIN LISPRO 1 UNIT/0.01 ML UNIT SQ SCH ×5 (07:25→21:24)
[2019-07-22] MEDS: glipiZIDE 5 MG TAB.XL.24H PO SCH (07:25)
[2019-07-22 07:40] LABS: Calcium 8.1 mg/dl (8.6-10.4); Carbon Dioxide 24 mmol/L (22-30); Glucose 259 mg/dL (70-105)
--- NOTE | 2019-07-22 07:45 | Internal Med Progress Note ---
Medical - PN: Subj Patient information: Note initiated : 07/22/19 at 7:41 am Service Date, if different from initiated Date: [] Patient: Perez Sandy 63 y/o F admitted on 07/20/19 for Fluid Overload . Chief Complaint: [] Interval history: Ms. Sandy is a 63 year old F Patient presents the ED with shortness of breath. Patient states she developing shortness of breath last night. She has a chronic cough but the cough is worse. And productive of white clear sputum. Does have chronic shortness of breath but feels it is worse as well. She has headaches. In ED she received breathing treatments she said helped. She typically only wears oxygen at night 2 L however will wear oxygen during the day sometimes and averages a couple days per week. Denies fever and chills. She was hypoxic at 86% initially. She is dialysis patient as well. 3/3 Better today. Able to cough out some sputum today clear yellow. Shortness of breath is still mildly present but much better. 5 L removed from the night hemodialysis last night. Getting dialysis today. Does not feel wheezy like she did yesterday. 3/4 To get hemodialysis today. Patient does feel better today. Cough improving. Shortness of breath improving. Weekend Case management working on SNF placement Review of Systems: denies headache/fever/chills/nausea/vomiting/chest or abdominal pain/diarrhea. Otherwise see above. - Constitutional Vitals: Vital Signs Temp Pulse Resp BP Pulse Ox 98.1 F 72 16 112/61 95 07/22/19 04:00 07/22/19 04:00 07/22/19 04:00 07/22/19 04:00 07/22/19 04:00 Period Temp Pulse Resp BP Sys/Joyce Pulse Ox Last 24 Hr 97.2 F-98.1 F 72-105 16-22 99-154/55-90 91-98 Intake and Output 07/21/19 07/22/19 07/22/19 21:59 05:59 13:59 Intake Total 240 Output Total 3650 1 Balance -3650 239 Weight 98.883 kg Intake & Output: Intake & Output 07/21/19 07/22/19 07/22/19 21:59 05:59 13:59 Intake Total 240 Output Total 3650 1 Balance -3650 239 Weight 98.883 kg Intake: Oral 240 Output: # of times incontinent of urine 1 Hemodialysis UF 3650 Other: # Voids 1 # Bowel Movements 1 Exam: General: Alert, Awake, No acute Distress, obese Eyes/N/T: EOMI, , Head/Neck: neck supple, CV: RRR, No murmurs, Pulm: no wheezing today, diminished at bases but better aeration Abd: soft, nontender, +BS x4 Ext: no clubbing/cyanosis, chronic b/l LE edema mild Neuro: Alert, no focal deficits, moves all extremities, Skin: warm/dry Medical - PN: Obj Da - Labs CBC & Chem 7: 07/22/19 05:00 07/22/19 05:00 Labs: Abnormal Lab Results 07/22/19 07/22/19 07/21/19 05:00 05:00 06:55 WBC 14.9 H RBC 3.23 L Hgb 9.0 L Hct 28.2 L RDW 16.0 H MPV 10.5 H Gran % Lymph % (Auto) Gran # Lymph # (Auto) Lymphocytes % 10 L Metamyelocytes % 5 H Myelocytes % 1 H RBC Morphology Abnorm A Polychromasia 1+ A Hypochromasia 1+ A Anisocytosis 1+ A Chloride Anion Gap Creatinine Glucose 259 H Calcium 8.1 L Phosphorus GGT Alkaline Phosphatase Lactate Dehydrogenase 07/21/19 07/21/19 06:55 06:55 WBC 11.2 H RBC 3.45 L Hgb 9.6 L Hct 30.5 L RDW 16.1 H MPV Gran % 86.7 H Lymph % (Auto) 10.6 L Gran # 9.74 H Lymph # (Auto) 1.19 L Lymphocytes % Metamyelocytes % Myelocytes % RBC Morphology Polychromasia Hypochromasia Anisocytosis Chloride 91 L Anion Gap 17.0 H Creatinine 3.7 H Glucose 239 H Calcium 8.3 L Phosphorus 4.8 H GGT 58 H Alkaline Phosphatase 156 H Lactate Dehydrogenase 293 H Meds: Medications Acetaminophen (Tylenol) 650 mg PO Q6HP PRN PRN Reason: PAIN/FEVER > 101 Albuterol/Ipratropium (Duoneb) 3 ml NEB Q4HP PRN PRN Reason: Shortness Of Breath Albuterol/Ipratropium (Duoneb) 3 ml NEB Q6HRT KIAN Last Admin: 07/22/19 02:07 Dose: 3 ml Documented by: Aspirin (Aspirin) 81 mg PO DAILY KIAN Dextrose (Dextrose 50%) 0 ml IV UD PRN PRN Reason: Hypoglycemia Diagnostic Test (Pha) (Accu-Chek) [address] [facility] Last Admin: 07/21/19 21:15 Dose: 1 each Documented by: Diltiazem HCl (Cardizem Cd) 240 mg PO DAILY [facility] Docusate Sodium (Colace) 100 mg PO BID [facility] Last Admin: 07/21/19 21:40 Dose: Not Given Documented by: Gabapentin (Neurontin) 100 mg PO HSP PRN PRN Reason: nerve pain Last Admin: 07/21/19 21:37 Dose: 100 mg Documented by: Glipizide (Glucotrol Xl) 10 mg PO QAMAC [facility] Last Admin: 07/22/19 07:25 Dose: 10 mg Documented by: Glucose (Insta-Glucose) 15 gm PO PRN PRN PRN Reason: Hypoglycemia Heparin Sodium (Porcine) (Heparin) 5,000 unit SQ Q12 [facility] Last Admin: 07/21/19 21:37 Dose: 5,000 unit Documented by: Potassium Chloride 40 meq/ (Dextrose) 520 mls @ 130 mls/hr IV UD PRN PRN Reason: Potassium < 3 Levofloxacin (Levaquin) 500 mg in 100 mls @ 100 mls/hr IV Q48H [facility] Magnesium Sulfate (Magnesium Sulfate) 2 gm in 50 mls @ 50 mls/hr IV UD PRN PRN Reason: Magnesium </= 1.6 Insulin Glargine (Lantus) 30 unit SQ BID [facility] Last Admin: 07/21/19 21:38 Dose: 30 unit Documented by: Insulin Human Lispro (Humalog) 0 unit SQ [facility]; Protocol Last Admin: 07/22/19 07:25 Dose: 10 units Documented by: Lactulose (Cephulac) 20 gm PO DAILYP PRN PRN Reason: Constipation Melatonin (Melatonin 3mg Tablet) 3 mg PO QHS [facility] Last Admin: 07/21/19 21:37 Dose: 3 mg Documented by: Methylprednisolone Sodium Succinate (Solu-Medrol) 40 mg IV Q12 [facility] Last Admin: 07/21/19 21:37 Dose: 40 mg Documented by: Midodrine (Midodrine Hcl) 5 mg PO Q4HP PRN PRN Reason: Blood Pressure Ondansetron HCl (Zofran) 4 mg IV Q4HP PRN PRN Reason: Nausea And Vomiting Fluticasone/Salmeterol [Advair Hfa] 115-21 Mcg Inhaler 2 dose INH BID [facility] Last Admin: 07/21/19 21:42 Dose: 2 dose Documented by: Polyethylene Glycol (Miralax) 17 gm PO DAILYP PRN PRN Reason: Constipation Potassium Chloride (Kdur) 40 meq PO UD PRN PRN Reason: Potssium is 3-3.5 Potassium Chloride (Kdur) 40 meq PO UD PRN PRN Reason: Potassium < 3 Senna (Senokot) 2 tab PO DAILYP PRN PRN Reason: Constipation Simvastatin (Zocor) 10 mg PO [facility] Last Admin: 07/21/19 21:37 Dose: 10 mg Documented by: Sodium Chloride (Saline Flush) 10 ml IV Q8 [facility] Last Admin: 07/22/19 05:56 Dose: 10 ml Documented by: Trazodone HCl (Desyrel) 50 mg PO [facility] Last Admin: 07/21/19 21:37 Dose: 50 mg Documented by: Medical - PN: A/P - Time Spent With Patient Total time spent is greater than 50% in coordination of care (as documented) at patient's floor/unit and/or counseling patient: - Narrative A/P Narrative: A: *Acute hypoxic respiratory failure: 2/2 AECOPD and volume overload -from 2L initially to 1L today *suspect underlying PNA with leukocytosis/PCT elevation on admit: -leukocytosis worse today but likely steroids *AECOPD (2L@night at home and sometimes during day): *Volume overload: *ESRD: Follows with Dr. Molina *Hyperkalemia/hyponatremia: *DM with neuropathy:: *Anemia, chronic *Obese: *Generalized weakness/deconditioning P: -O2 supp -steroids (wean), nebs/RT -IS/acapella -Levaquin, pending SC, -NEphro for HD -Electrolyte per nephrology -Home basal insulin and SSI -PT/OT -CM for placement likely SNF -ppx: Heparin Medical - PN: Qual - VTE Deep Vein Thrombosis/Pulmonary Embolism Present on Admission: No
[2019-07-22 07:55] LABS: Blood Urea Nitrogen 56 mg/dl (8-23); Chloride 90 mmol/L (96-108); Glomerular Filtration Rate 8
[2019-07-22] MEDS: predniSONE 20 MG TABLET PO SCH ×2 (08:21→10:14)
[2019-07-22] MEDS: ASPIRIN 81 MG TAB.CHEW PO SCH (08:21)
[2019-07-22] MEDS: INSULIN GLARGINE, HUMAN 1 UNIT/0.01 ML SQ SCH ×2 (08:22→21:25)
[2019-07-22] MEDS: DILTIAZEM 240 MG CAP.XL.24H PO SCH (08:22)
[2019-07-22] MEDS: HEPARIN 5,000 UNIT/ML VIAL SQ SCH ×2 (08:22→21:26)
[2019-07-22] MEDS: FLUTICASONE INH SCH ×2 (08:23→21:27)
[2019-07-22] MEDS: SALMETEROL INH SCH ×2 (08:23→21:27)
[2019-07-22] MEDS: DOCUSATE SODIUM 100 MG CAPSULE PO SCH ×2 (08:23→21:27)
[2019-07-22] MEDS ORDERED: LEVOFLOXACIN 500 MG/100 ML BAG IV SCH ×2 (09:00)
[2019-07-22 09:11] LABS: Anisocytosis 1+ (NONE SEEN); Band Neutrophils % 5 % (0-10); Hypochromasia 1+ (NONE SEEN); Lymphocytes % 13 % (15-49); Metamyelocytes % 1 % (0-0); Monocytes % (Manual) 3 % (1-12); Platelet Estimate NORMAL (NORMAL); Polychromasia 2+ (NONE SEEN); RBC Morphology ABNORM (NORMAL); Reactive Lymphocytes 1 % (0-2); Segmented Neutrophils % 77 % (38-78)
--- NOTE | 2019-07-22 09:21 | Nephrology Progress Note ---
Subjective Patient information: Note initiated : 07/22/19 at 9:19 am Service Date, if different from initiated Date: [] Patient: Perez Sandy 63 y/o F admitted on 07/20/19 for Fluid Overload . Chief Complaint: [] Breathing is lot better. Her edema is better as well. Objective - Vital Signs Vital signs: Vital Signs Temp Pulse Pulse Resp BP BP Pulse Ox 07/22/19 08:41 75 16 07/22/19 07:45 97.5 F 76 16 105/65 96 07/22/19 04:00 98.1 F 72 16 112/61 95 07/21/19 23:57 97.4 F 20 105/55 93 07/21/19 22:55 88 20 07/21/19 20:00 97.2 F 20 99/58 96 07/21/19 16:02 97.6 F 89 20 118/67 94 07/21/19 15:46 134/76 07/21/19 15:30 137/84 07/21/19 15:17 128/89 07/21/19 15:00 97.2 F 89 132/77 92 07/21/19 14:46 84 113/67 93 07/21/19 14:45 86 113/67 07/21/19 14:30 86 120/68 92 07/21/19 14:15 85 116/70 98 07/21/19 14:00 85 20 116/72 94 07/21/19 13:46 87 104/66 95 07/21/19 13:45 84 104/66 07/21/19 13:30 83 110/90 95 07/21/19 13:16 84 111/85 95 07/21/19 13:15 84 111/85 07/21/19 13:00 87 131/75 94 07/21/19 12:46 87 111/88 97 07/21/19 12:45 87 111/88 07/21/19 12:37 89 95 07/21/19 12:30 92 H 145/74 95 07/21/19 12:16 98 F 95 H 18 137/85 96 07/21/19 12:15 95 H 137/85 07/21/19 12:01 95 H 146/72 95 07/21/19 12:00 93 H 146/72 07/21/19 11:45 98.0 F 89 154/68 03/03/20 11:00 95 H 154/68 95 07/21/19 10:22 129/81 07/21/19 10:00 129/81 Intake and Output 07/21/19 07/22/19 07/22/19 21:59 05:59 13:59 Intake Total 240 Output Total 3650 1 Balance -3650 239 Intake: Oral 240 Output: # of times incontinent of urine 1 Hemodialysis UF 3650 Other: # Voids 1 # Bowel Movements 1 Weight 218 lb Intake & Output: Intake & Output 07/21/19 07/22/19 07/22/19 21:59 05:59 13:59 Intake Total 240 Output Total 3650 1 Balance -3650 239 Weight 218 lb Intake: Oral 240 Output: # of times incontinent of urine 1 Hemodialysis UF 3650 Other: # Voids 1 # Bowel Movements 1 - General Appearance General appearance: well-developed, well-nourished EENT: ATNC Neck: no JVD Respiratory: no kyphosis, rales Cardiology: no murmurs Integumentary: no rash - Lab 07/22/19 05:00 07/22/19 05:00 Most recent lab results Calcium 8.1 mg/dl (8.6-10.4) L 07/22/19 05:00 Phosphorus 4.8 mg/dL (2.7-4.5) H 07/21/19 06:55 Magnesium 2.0 mg/dL (1.6-2.5) 07/21/19 06:55 Assessment and Plan (1) Chronic renal failure, stage 5 Status: Chronic Comment: ESRD. She had dialysis yesterday and had fluid removed. Her edema is better and cellulitis of the lower extremities is better as well. Will have her regular dialysis today and will have additional fluid removed.
[2019-07-22] MEDS: methylPREDNISolone SOD SUCC 40 MG/ML VIAL IV SCH (10:30)
[2019-07-22] MEDS: traZODone HCL 50 MG TABLET PO SCH (21:25)
[2019-07-22] MEDS: GABAPENTIN 100 MG CAPSULE PO PRN (21:25)
[2019-07-22] MEDS: MELATONIN 3 MG TABLET PO SCH (21:25)
[2019-07-22] MEDS: SIMVASTATIN 10 MG TABLET PO SCH (21:26)
[2019-07-23] MEDS: IPRATROPIUM/ALBUTEROL 3 ML AMPUL.NEB NEB SCH ×2 (00:34→07:20)
[2019-07-23] MEDS: 0.9 % SODIUM CHLORIDE 10 ML SYRINGE IV SCH ×3 (05:15→09:49)
[2019-07-23] MEDS: INSULIN LISPRO 1 UNIT/0.01 ML UNIT SQ SCH (07:39)
[2019-07-23] MEDS: glipiZIDE 5 MG TAB.XL.24H PO SCH (07:39)
[2019-07-23 07:43] LABS: Blood Urea Nitrogen 30 mg/dl (8-23); Calcium 8.6 mg/dl (8.6-10.4); Carbon Dioxide 24 mmol/L (22-30); Chloride 93 mmol/L (96-108); Glomerular Filtration Rate 15; Glucose 134 mg/dL (70-105)
[2019-07-23 07:59] LABS: Basophils # (Auto) 0.08 K/mcL (0.00-0.30); Basophils % (Auto) 0.4 % (0.0-2.0); Eosinophils # (Auto) 0 K/mcL (0.00-0.70); Eosinophils % (Auto) 0 % (0.0-7.0); Granulocytes % (Auto) 75.6 % (38.0-78.0); Hematocrit 30.3 % (34.1-44.9); Hemoglobin 9.5 g/dL (11.2-15.7); Lymphocytes # (Auto) 1.96 K/mcL (1.50-4.80); Mean Cell Volume 88.1 fL (80.0-100.0); Mean Corpuscular HGB Conc 31.4 g/dL (31.0-36.0); Mean Platelet Volume 10.4 fL (7.4-10.4); Monocytes # (Auto) 1.45 K/mcL (0.10-0.90); Monocytes % (Auto) 8.1 % (1.0-12.0); Platelet Count 322 K/mcL (140-440); RBC 3.44 M/mcL (3.59-5.38); Red Cell Distribution Width 16.5 % (11.5-14.5); WBC 17.8 K/mcL (4.50-11.00)
--- NOTE | 2019-07-23 09:12 | Event Note ---
Patient doing well. She does have a noted leukocytosis but she is afebrile and feels well. Nontoxic appearing. Bandemia. Looking at lab trends seem she has had a chronic leukocytosis. Will schedule follow-up with hematology.
--- NOTE | 2019-07-23 09:25 | Nephrology Progress Note ---
Subjective Patient information: Note initiated : 07/23/19 at 9:24 am Service Date, if different from initiated Date: [] Patient: Perez Sandy 63 y/o F admitted on 07/20/19 for Fluid Overload . Chief Complaint: [] Breathing is better. Cough is better. Legs not hurting as much. Objective - Vital Signs Vital signs: Vital Signs Temp Pulse Pulse Resp BP BP Pulse Ox 07/23/19 07:41 99.3 F H 20 113/47 94 07/23/19 07:27 83 20 07/23/19 04:00 98.8 F 75 16 112/71 96 07/22/19 23:35 97.6 F 79 18 99/59 95 07/22/19 20:00 95 07/22/19 19:29 98.4 F 81 20 108/70 99 07/22/19 19:25 98.4 F 83 108/70 07/22/19 19:05 78 117/66 07/22/19 18:50 78 95/66 07/22/19 18:35 80 110/66 07/22/19 18:20 79 107/62 07/22/19 18:05 77 106/85 07/22/19 17:50 80 118/68 07/22/19 17:35 83 116/67 07/22/19 17:20 79 109/58 07/22/19 17:05 97 H 98/58 07/22/19 16:50 97 H 104/82 07/22/19 16:35 73 124/88 07/22/19 16:20 74 119/71 07/22/19 16:05 73 126/68 07/22/19 15:50 77 107/52 07/22/19 15:35 76 123/71 07/22/19 15:31 97.9 F 73 18 119/72 95 07/22/19 15:20 73 119/72 07/22/19 15:05 76 115/67 07/22/19 14:50 97.9 F 70 114/69 07/22/19 12:00 97.8 F 81 16 103/59 93 Intake and Output 07/22/19 07/23/19 07/23/19 21:59 05:59 13:59 Intake Total 1020 240 Output Total 3750 Balance -2730 240 Intake: Oral 1020 240 Output: Hemodialysis UF 3750 Other: Weight 217 lb 8 oz Intake & Output: Intake & Output 07/22/19 07/23/19 07/23/19 21:59 05:59 13:59 Intake Total 1020 240 Output Total 3750 Balance -2730 240 Weight 217 lb 8 oz Intake: Oral 1020 240 Output: Hemodialysis UF 3750 - General Appearance General appearance: well-developed, well-nourished EENT: ATNC Neck: no JVD Respiratory: rhonchi Cardiology: no murmurs Gastrointestinal: normoactive bowel sounds Integumentary: no rash Neurologic: no focal deficit Musculoskeletal: no deformities - Lab 07/23/19 05:00 07/23/19 05:00 Most recent lab results Calcium 8.6 mg/dl (8.6-10.4) 07/23/19 05:00 Phosphorus 4.8 mg/dL (2.7-4.5) H 07/21/19 06:55 Magnesium 2.0 mg/dL (1.6-2.5) 07/21/19 06:55 Assessment and Plan (1) Chronic renal failure, stage 5 Status: Chronic Comment: ESRD. She had dialysis 3 days in a row and had fluid removed. Her edema is better and cellulitis of the lower extremities is better as well. Will have her regular dialysis tomorrow as outpatient.
[2019-07-23] MEDS: ASPIRIN 81 MG TAB.CHEW PO SCH (09:39)
[2019-07-23] MEDS: DILTIAZEM 240 MG CAP.XL.24H PO SCH (09:39)
[2019-07-23] MEDS: HEPARIN 5,000 UNIT/ML VIAL SQ SCH (09:41)
[2019-07-23] MEDS: methylPREDNISolone SOD SUCC 40 MG/ML VIAL IV SCH (09:41)
[2019-07-23] MEDS: SALMETEROL INH SCH (09:42)
[2019-07-23] MEDS: FLUTICASONE INH SCH (09:42)
[2019-07-23] MEDS: INSULIN GLARGINE, HUMAN 1 UNIT/0.01 ML SQ SCH (09:42)
[2019-07-23] MEDS: DOCUSATE SODIUM 100 MG CAPSULE PO SCH (09:47)
[2019-07-23] MEDS ORDERED: CALCIUM CARBONATE 500 MG TAB.CHEW CHEWED ONE (09:55)
== END 2019-07-23 11:05 | DRG 189 ==
LOC: ICU 14:29 → SUATTDRO 14:29
PROVIDERS: ADMIT Internal Medicine; ATTEND Internal Medicine Nephrology